=== PATIENT | female | born 1960 | race African-American/Black ===

== ENCOUNTER 2020-11-29 13:45 | Emergency (ER) | payer MEDICAID ==
[~2020-11-29] VITALS: Ht 175.3 cm; Wt 79.0 kg
[2020-11-29] MEDS ORDERED: TOPUD PO (15:04)
[2020-11-29 15:26] VITALS: BP 166/85
== END 2020-11-29 15:27 | disposition home or self-care (01) ==
LOC: ER 13:45
DX: S62.600A Fracture of unspecified phalanx of right index finger, initial encounter for closed fracture (principal); E11.9 Type 2 diabetes mellitus without complications; I10 Essential (primary) hypertension; X58.XXXA Exposure to other specified factors, initial encounter; Y93.89 Activity, other specified; Y92.89 Other specified places as the place of occurrence of the external cause; Y99.8 Other external cause status
CPT/HCPCS: 12001; 73120; 99283; A4217; Z7610

== ENCOUNTER 2020-12-01 12:11 | Emergency (ER) | payer MEDICAID ==
[~2020-12-01] VITALS: Ht 177.8 cm; Wt 70.0 kg
[~2020-12-01 12:11] MED LIST: TOPUD PO
[2020-12-01 12:33] VITALS: BP 127/62
[2020-12-01] MEDS ORDERED: BACITRACIN ZINC OINT UDPKT TOP ONE (13:45)
== END 2020-12-01 14:02 | disposition home or self-care (01) ==
LOC: ER 12:36
DX: Z48.00 Encounter for change or removal of nonsurgical wound dressing (principal)
CPT/HCPCS: 99283

== ENCOUNTER 2021-07-20 04:29 | Emergency (ER) | payer MEDICAID ==
[~2021-07-20] VITALS: Ht 175.3 cm; Wt 90.0 kg
[2021-07-20] MEDS ORDERED: METHOCARBAMOL 500MG TABLET PO ONE (06:45)
[2021-07-20] MEDS ORDERED: KETOROLAC 60MG/2ML VIAL IM ONE (06:45)
[2021-07-20] MEDS ORDERED: TRAM50TA3 MT (09:07)
[2021-07-20] MEDS ORDERED: METH-773 MT (09:07)
[2021-07-20] MEDS ORDERED: NAPR-677 MT (09:07)
[2021-07-20 09:30] VITALS: BP 136/61
== END 2021-07-20 09:45 | disposition home or self-care (01) ==
LOC: ER 04:29
DX: S20.212A Contusion of left front wall of thorax, initial encounter (principal); R07.89 Other chest pain; V43.62XA Car passenger injured in collision with other type car in traffic accident, initial encounter; Y93.89 Activity, other specified; Y92.488 Other paved roadways as the place of occurrence of the external cause
CPT/HCPCS: 71046; 96372; 99283; J1885